=== PATIENT | female | born 1950 | race Caucasian/White ===

== ENCOUNTER → 2019-03-05 13:30 | Outpatient (CLI) | payer MEDICARE ==
--- NOTE | 2019-03-10 09:55 | EC ---
PATIENT:JAISON MANCUSO DATE OF SERVICE: 03/05/19 SEX: F MEDICAL RECORD: [id number] DATE OF : [birth year] LOCATION:[facility] AGE OF PATIENT: 68 ADMISSION DATE: 03/05/19 REFERRING PHYSICIAN: INTERPRETING PHYSICIAN: CARMELINA BO MD ECHOCARDIOGRAM REPORT ECHO CHARGES 4 ECHO COMPLETE Date: 03/05/19 CLINICAL DIAGNOSIS: ASSESS MITRAL/TRICUSPID VALVES, HX OF RHEUMATIC FEVER ECHOCARDIOGRAPHIC MEASUREMENTS (adult normal given) AC root (d.<3.7cm) 2.8 cm LV Septum d (<1.2 cm> 1.2 cm Valve Excursion 1.3 cm LV Septum (systole) 1.4 cm Left Atria (s.<4.0cm> 3.8 cm LVPW d(<1.2cm) 1.3 cm RV (d.<2.3cm) 2.6 cm LVPW (sytole) 1.5 cm LV diastole(<5.6CM) 4.7 cm MV E-F(>70mm/sec) cm LV systole 3.4 cm LVOT Diameter 2.1 cm MV exc.(>10mm) 1.1 cm Est.ejection fraction (50-75%) % DOPPLER: LVIT cm/sec A 105 cm/sec E 97.0 cm/sec LA cm/sec RVSP 31 mmHg LVOT 114 cm/sec AOP1/2T 508 m/s Asc. Ao 152 cm/sec RVOT 106 cm/sec RA cm/sec PA 141 cm/sec AV Gradient Peak 9.25 mmHg AV Mean 4.52 mmHg AV Area 2.2 cm MV Gradient Peak 5.35 mmHg MV Mean 1.93 mmHg MV Area cm COMMENTS: Director Dental Services: 2 BRYNN BECKFORD Senior Water/Wastewater Engineer: 3 Dr. Rushing TAPE# PACS Pericardial Effusion N DATE OF SERVICE: Adequate 2D, color flow, spectral Doppler, and M-Mode. No LVH. LV internal dimension is normal. Wall motion is normal. EF is greater than or equal to 55%. Aortic valve is tricuspid. There is no evidence of stenosis on Doppler interrogation. Trivial AI by color flow imaging. Left atrium is normal at 3.8 cm. Mitral valve shows no prolapse. Trivial MR. Right-sided chambers grossly normal. Trivial TR. ECHOCARDIOGRAM REPORT [id number] JAISON MANCUSO TRANSINT:[id number] Voice Confirmation ID: [id number] DOCUMENT ID: [id number] CARMELINA BO MD at 0955 CC: [id number] DICTATION DATE: 03/07/19840 [facility] DIRECTOR: 03/07/19 1203 DEP CLI 03/05/19 [place] [id number] [place] [id number]
== END | disposition home or self-care (01) ==
LOC: D.HCCARDIO 13:30
PROVIDERS: ATTEND Internal Medicine Interventional Cardiology
DX: I08.1 Rheumatic disorders of both mitral and tricuspid valves (principal)